=== PATIENT | male | born 1985 | race American Indian/Alaskan Native ===

== ENCOUNTER 2016-12-30 07:58 | Emergency (ER) | payer SELFPAY ==
[2016-12-30 08:11] VITALS: BP 116/70
--- NOTE | 2016-12-30 09:09 | Cat Scan Report ---
CT scan of head without contrast: History: Head injury. Findings: Ventricles are normal in size and midline in location. No evidence of acute ischemia, hemorrhage or mass. No extra axial fluid collection. Normal brainstem and cerebellum. Impression: No acute intracranial abnormality.
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
[2016-12-30] MEDS ORDERED: MOTRIN PO ONE (09:22)
== END 2016-12-30 09:27 | disposition home or self-care (01) ==
LOC: EDBD → ED 07:58
DX: S01.01XA Laceration without foreign body of scalp, initial encounter (principal); W22.8XXA Striking against or struck by other objects, initial encounter; Y93.9 Activity, unspecified; Y92.9 Unspecified place or not applicable; Y99.9 Unspecified external cause status; F17.200 Nicotine dependence, unspecified, uncomplicated
CPT/HCPCS: 70450; 99283

== ENCOUNTER 2019-08-25 17:17 | Emergency (ER) | payer SELFPAY ==
[2019-08-25 18:58] VITALS: BP 130/85
[2019-08-25] MEDS ORDERED: IBUPROFEN 800 MG TAB PO ONE (19:27)
[2019-08-25] MEDS ORDERED: HYDROcodone/ACETAMINOPHEN 7.5-325MG TAB PO ONE (19:27)
[2019-08-25] MEDS ORDERED: ONDANSETRON 4 MG ODT TAB PO ONE (19:27)
--- NOTE | 2019-08-25 20:11 | XRay Report ---
XR knee 3V RT INDICATION / CLINICAL INFORMATION: Right knee pain after injury. COMPARISON: None available. FINDINGS: BONES/JOINT(S): No acute fracture or subluxation. No significant degenerative changes. No significant joint effusion SOFT TISSUES: No significant abnormality. ADDITIONAL FINDINGS: None. Signer Name: Samuel Shepherd MD Signed: 08/25/2019 8:07 PM Workstation Name: [id number]
--- NOTE | 2019-08-25 20:11 | XRay Report ---
XR shoulder 2+V RT INDICATION / CLINICAL INFORMATION: Right shoulder pain after injury. COMPARISON: None available. FINDINGS: BONES/JOINT(S): No acute fracture or subluxation. No significant degenerative changes. SOFT TISSUES: No significant abnormality. ADDITIONAL FINDINGS: None. Signer Name: Samuel Shepherd MD Signed: 08/25/2019 8:06 PM Workstation Name: [id number]
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
== END 2019-08-25 20:40 | disposition home or self-care (01) ==
LOC: ED 17:17
DX: S43.401A Unspecified sprain of right shoulder joint, initial encounter (principal); S83.91XA Sprain of unspecified site of right knee, initial encounter; F12.10 Cannabis abuse, uncomplicated; X58.XXXA Exposure to other specified factors, initial encounter; Y93.89 Activity, other specified; Y92.89 Other specified places as the place of occurrence of the external cause; Y99.8 Other external cause status
CPT/HCPCS: 99284; Q0162

== ENCOUNTER 2021-06-18 07:43 | Emergency (ER) | payer SELFPAY ==
[2021-06-18 08:08] VITALS: BP 134/63
[2021-06-18] MEDS ORDERED: LIDOCAINE-MPF (1%) 10 MG/1 ML VIAL 5 ML INFILTRATI ONE (08:52)
--- NOTE | 2021-06-18 08:58 | Emergency Department Report ---
ED Male HPI - General Chief complaint: Urogenital-Male Stated complaint: SWOLLEN PENIS/DISCHARGE Time Seen by Provider: 06/18/21 08:11 Source: patient Mode of arrival: Ambulatory Limitations: No Limitations - History of Present Illness Initial comments: The patient was evaluated in the emergency department for symptoms described in the history of present illness. He/she was evaluated in the context of the global COVID-19 pandemic, which necessitated consideration that the patient might be at risk for infection with the virus that causes COVID-19. Institutional protocols and algorithms that pertain to the evaluation of patients at risk for COVID-19 are in a state of rapid change based on information released by regulatory bodies including the CDC and federal and state organizations. These policies and algorithms were followed during the patient's care in the emergency department. Please note that these policies, procedures and recommendations changed on a rapid basis. 36-year-old -[place] male presents to the emergency room complaining of penile discharge and penis swelling for 2 days. Patient does admit to unprotected intercourse. Denies any fever chills no abdominal pain no chest pain no nausea vomiting. Patient denies any dysuria no hematuria. MD Complaint: penile discharge, groin pain Onset/Timin -: days(s) - Related Data Previous Rx's Medication Instructions Recorded Last Taken Type Ibuprofen [Motrin] 600 mg PO Q8H PRN #20 tablet 12/30/16 Unknown Rx Cyclobenzaprine [Flexeril] 10 mg PO Q8H PRN #15 tablet 08/25/19 Unknown Rx Ibuprofen [Motrin] 800 mg PO Q8HR PRN #24 tablet 08/25/19 Unknown Rx Doxycycline Hyclate [Doxycycline 100 mg PO Q12HR 7 Days #14 tab 06/18/21 Unknown Rx Hyclate TAB] Allergies Allergy/AdvReac Type Severity Reaction Status Date / Time No Known Allergies Allergy Verified 12/30/16 08:12 ED Review of Systems ROS: Stated complaint: SWOLLEN PENIS/DISCHARGE Other details as noted in HPI ED Past Medical Hx - Past Medical History Previous Medical History?: No - Surgical History Past Surgical History?: No - Social History Smoking Status: Never Smoker Substance Use Type: Alcohol, Marijuana - Medications Home Medications: Home Medications Medication Instructions Recorded Confirmed Last Taken Type Ibuprofen [Motrin] 600 mg PO Q8H PRN #20 tablet 12/30/16 Unknown Rx Cyclobenzaprine [Flexeril] 10 mg PO Q8H PRN #15 tablet 08/25/19 Unknown Rx Ibuprofen [Motrin] 800 mg PO Q8HR PRN #24 tablet 08/25/19 Unknown Rx Doxycycline Hyclate [Doxycycline 100 mg PO Q12HR 7 Days #14 tab 06/18/21 Unknown Rx Hyclate TAB] ED Physical Exam - General Limitations: No Limitations General appearance: alert, in no apparent distress - Head Head exam: Present: atraumatic, normocephalic - Eye Eye exam: Present: normal appearance - ENT ENT exam: Present: mucous membranes moist, normal external ear exam - Neck Neck exam: Present: normal inspection - Respiratory Respiratory exam: Present: normal lung sounds bilaterally. Absent: respiratory distress - Cardiovascular Cardiovascular Exam: Present: regular rate, normal rhythm. Absent: systolic murmur, diastolic murmur, rubs, gallop - GI/Abdominal GI/Abdominal exam: Present: soft, normal bowel sounds - Rectal Rectal exam: Present: deferred - exam: Present: urethral discharge, circumcision. Absent: testicular tenderness, scrotal swelling External exam: Present: swelling - Extremities Exam Extremities exam: Present: normal inspection - Back Exam Back exam: Present: normal inspection - Neurological Exam Neurological exam: Present: alert, oriented X3, normal gait - Psychiatric Psychiatric exam: Present: normal affect, normal mood - Skin Skin exam: Present: warm, dry, intact, normal color. Absent: rash ED Course Vital Signs 06/18/21 07:54 Temperature 99.3 F Pulse Rate 96 H Respiratory 20 Rate Blood Pressure 134/63 O2 Sat by Pulse 100 Oximetry ED Medical Decision Making - Medical Decision Making 36-year-old -[place] male presents to the emergency room complaining of penile discharge and penis swelling for 2 days. Patient does admit to unprotected intercourse. Denies any fever chills no abdominal pain no chest pain no nausea vomiting. Patient denies any dysuria no hematuria. Patient is given a Rocephin 1 g IM and will be discharged on doxycycline and in structions to follow-up at the health department for full STD evaluation and treatment. Critical care attestation.: If time is entered above; I have spent that time in minutes in the direct care of this critically ill patient, excluding procedure time. ED Disposition Clinical Impression: Abnormal penile discharge, Concern about STD in male without diagnosis Disposition: HOME / SELF CARE / HOMELESS Is pt being admited?: No Does the pt Need Aspirin: No Condition: Stable Instructions: Urethritis, Adult, Gonorrhea, Safe Sex Additional Instructions: Complete antibiotics as prescribed. Refrain from intercourse for the next 2 weeks until you have been tested and your partner has been tested and treated. You need a full STD evaluation that she can have done at [facility] which consists of HIV herpes hepatitis syphilis gonorrhea chlamydia. Prescriptions: Doxycycline Hyclate [Doxycycline Hyclate TAB] 100 mg PO Q12HR 7 Days #14 tab Referrals: [facility] [Outside] - 3-5 Days Forms: Work/School Release Form(ED) Time of Disposition: 08:56
== END 2021-06-18 09:16 | disposition home or self-care (01) ==
LOC: ED 07:43
DX: R36.9 Urethral discharge, unspecified (principal); N48.9 Disorder of penis, unspecified; F12.10 Cannabis abuse, uncomplicated
CPT/HCPCS: 96372; 99281; J0696